=== PATIENT | male | born 1950 | race Caucasian/White ===

== ENCOUNTER 2017-08-05 15:40 | Inpatient (IN) | payer OTHER ==
[~2017-08-05] VITALS: Ht 175.3 cm; Wt 110.2 kg
[~2017-08-05 15:40] MED LIST: ASPI81TA24 PO; ATOR40TA PO; CLOP75TA PO; GEMF600T5 PO; INSU100S22 SC; LISI5TAB18 PO; METF1000 PO; NITR0.4T2 SL; SITA50TA3 PO; TAMS0.4C96 PO
[2017-08-05 16:07] VITALS: BP 99/66
[2017-08-05 16:29] LABS: APPEARANCE,URINE CLEAR (CLEAR); BILIRUBIN,URINE NEGATIVE (NEGATIVE); BLOOD, URINE NEGATIVE (NEGATIVE); COLOR,URINE YELLOW (YELLOW); LEUKOCYTE ESTERASE ,URINE NEGATIVE (NEGATIVE); NITRITE, URINE NEGATIVE (NEGATIVE); PH,URINE 5.5 (5.0-9.0); UGLUCOSE 3+ (NEGATIVE)
[2017-08-05 16:44] LABS: BASOPHILS # (AUTO) 0.1 K/uL (0.00-0.22); EOSINOPHILS # (AUTO) 0.3 K/uL (0-0.4); EOSINOPHILS % (AUTO) 3.1 % (0.0-4.0); HEMATOCRIT 50.5 % (36-52); HEMOGLOBIN 16.8 g/dL (12.0-18.0); LYMPHOCYTES # (AUTO) 1.8 K/uL (2.0-11.5); LYMPHOCYTES % (AUTO) 20.1 % (20.5-51.1); MEAN CORPUSCULAR HEMOGLOBIN 28 pg (27-31); MEAN CORPUSCULAR HGB CONC 33 g/dL (33-37); MEAN CORPUSCULAR VOLUME 84 fL (80-94); MONOCYTES # (AUTO) 0.4 K/uL (0.8-1.0); MONOCYTES % (AUTO) 4.3 % (1.7-9.3); NEUTROPHILS # (AUTO) 6.3 K/uL (1.8-7.7); NEUTROPHILS % (AUTO) 71.5 % (42.2-75.2); PLATELET COUNT (AUTO) 187 K/uL (140-450); RED BLOOD CELL COUNT(AUTO) 5.98 MIL/uL (4.20-6.10); RED CELL DISTRIBUTION WIDTH 12.9 % (11.6-13.7); WHITE BLOOD COUNT (AUTO) 8.9 K/uL (4.8-10.8)
--- NOTE | 2017-08-05 16:45 | NUR ---
Patient to bed 04.
--- NOTE | 2017-08-05 16:50 | NUR ---
PATIENT PRESENTS TO ED WITH ELEVATED BLOOD GLUCOSE. PT STATES HE WENT TO URGENT CARE REGARDING POLYURIA WHERE THEY FOUND HIS BS TO BE 588. BS NOW >600, AWAITING LAB BLOOD DRAW RESULTS. DENIES N/V/D; SKIN IS PINK/WARM/DRY; AAOX4 WITH EVEN AND STEADY GAIT; LUNGS CLEAR BL; HR EVEN AND REGULAR; PT DENIES ANY FEVER, CP, SOB, OR COUGH AT THIS TIME; PATIENT STATES PAIN OF 0/10 AT THIS TIME; VSS; PATIENT POSITIONED FOR COMFORT; HOB ELEVATED; BEDRAILS UP X2; BED DOWN. ER MD MADE AWARE OF PT STATUS.
[2017-08-05 16:52] LABS: RBC,URINE 0-5 (RARE) /HPF (0-5); WBC,URINE NONE SEEN /HPF (0-5)
[2017-08-05 17:00] LABS: PROTHROMBIN TIME 11.2 secs (10.8-13.4)
[2017-08-05 17:11] LABS: ALBUMIN 3.7 g/dL (3.4-5.0); ANION GAP 16.8 (8-16); CARBON DIOXIDE 20.7 mmol/L (21-32); CREATININE 1.9 mg/dL (0.7-1.3); POTASSIUM 4.5 mmol/L (3.5-5.1); TOTAL BILIRUBIN 0.4 mg/dL (0.0-1.0)
[2017-08-05] MEDS ORDERED: NACL 0.9% 1,000 ML IV ONE ×2 (17:15→21:35)
--- NOTE | 2017-08-05 17:15 | NUR ---
Dr. Walsh evaluating patient at bedside.
[2017-08-05] MEDS ORDERED: INSULIN HUMAN REGULAR 100 UNITS/ML 10 ML VIAL SUBQ ONE (17:20)
[2017-08-05] MEDS ORDERED: NACL 0.9% 1,000 ML IV SCH (18:12)
[2017-08-05] MEDS ORDERED: ACETAMINOPHEN 325 MG TAB PO PRN (18:15)
[2017-08-05] MEDS ORDERED: MORPHINE SULFATE 2 MG/ML SYR IVP PRN (18:15)
[2017-08-05] MEDS ORDERED: NITROGLYCERIN 0.4 MG TAB SL PRN (18:15)
[2017-08-05] MEDS ORDERED: LORazepam 2 MG/ML VIAL IVP PRN (18:15)
[2017-08-05] MEDS ORDERED: ONDANSETRON 4 MG/2 ML VIAL IVP PRN (18:15)
[2017-08-05] MEDS ORDERED: DEXTROSE 50% 50 ML SYR IVP PRN (18:15)
[2017-08-05 18:41] LABS: CREATINE KINASE MB 1.5 ng/mL (0-3.6)
--- NOTE | 2017-08-05 18:55 | NUR ---
Pt report given to DAMIAN ADAMSON. Transfer of care at this time. PATIENT TRANSFERRED TO TELEMETRY FLOOR 106B. PATIENT AMBULATORY. NO S/S OF ACUTE DISTRESS. IV SITE PATENT AND INTACT. ALERT AND ORIENTED.
--- NOTE | 2017-08-05 18:55 | NUR ---
PT ARRIVED ON UNIT VIA GURNEY. PT WAS ABLE TO AMBULATE FROM GURNEY TO BED. PT IS AAOX4, ON ROOM AIR, 20 GAUGE IV ON LEFT HAND, SKIN INTACT, DRYNESS TO ELBOWS. VITAL SIGNS STABLE. PT WAS GIVEN 15 UNITS OF NOVALIN INSULIN IN ER, CHECKED BLOOD SUGAR ON ARRIVAL TO UNIT AND IT WAS 518. SPOKE WITH DR HALL AND HE ORDERED 10 UNITS OF HUMALOG INSULIN. DISCUSSED PLAN OF CARE WITH PATIENT, PATIENT VERBALIZED UNDERSTANDING. PT STABLE, NO SIGNS OF DISTRESS NOTED. BED IN LOW POSITION, CALL LIGHT WITHIN REACH. WILL CONTINUE TO MONITOR.
[2017-08-05] MEDS: INSULIN LISPRO SLIDING SCALE 100 UNITS/ML VIAL SUBQ PRN ×2 (19:18→21:58)
--- NOTE | 2017-08-05 19:30 | NUR ---
ENDORSED PT TO BUILDING MOVER RN. PT IN STABLE CONDITION.
--- NOTE | 2017-08-05 19:31 | NUR ---
Admitted from ER TO TELEMETRY UNIT , with chief complaint of FREQUENT URINATION , 67 y/o ,Male, Cooperative, AWAKE, A/OX4, AMBULATORY. RESPIRATION EVEN AND UNLABORED.IV OF NS AT 100 ML/HR INFUSING LEFT HAND G20. LUNGS CLEAR ON BILATERAL AUSCULTATION. ABDOMEN SOFT, NON-TENDER WITH POSITIVE BOWEL SOUNDS ON ALL QUADRANTS. HEAD TO TOE ASSESSMENT DONE WITH CN FAIRY, SKIN INTACT. PLAN OF CARE FOR THE SHIFT DISCUSSED. VERBALIZED UNDERSTANDING. DENIES PAIN 0/10.oriented to call light, bed, phone,television, bathroom, smoking policy,visiting hours, procedures, ID bracelet on. Belongings list checked.
[2017-08-05 20:00] VITALS: BP_SYST 118; BP_SYST 127; BP_DIAS 51; BP_DIAS 77
[2017-08-05] MEDS ORDERED: INSULIN DETEMIR 100 UNITS/ML 10 ML VIAL SUBQ SCH (21:00)
[2017-08-05] MEDS ORDERED: INSULIN GLARGINE HUM REC ANLOG U SCH (21:00)
[2017-08-05] MEDS: BLOOD GLUCOSE MONITORING 1 DEV DEV FS SCH (21:52)
[2017-08-05] MEDS ORDERED: ZOLPIDEM 10 MG TAB PO PRN (23:00)
--- NOTE | 2017-08-05 23:13 | NUR ---
Patient's Plan of Care was discussed and reviewed with OBSTETRICS SCRUB NURSE: JANICE CARO.
--- NOTE | 2017-08-05 23:55 | NUR ---
UNABLE TO SLEEP, MEDICATED WITH AMBIEN ORDERED.
[2017-08-06] VITALS: BP 110/57
--- NOTE | 2017-08-06 00:55 | NUR ---
SLEEPING COMFORTABLY, NO DISTRESS NOTED.
[2017-08-06 04:00] VITALS: BP 125/75
[2017-08-06] MEDS: BLOOD GLUCOSE MONITORING 1 DEV DEV FS SCH ×2 (06:57→11:17)
[2017-08-06] MEDS: INSULIN LISPRO SLIDING SCALE 100 UNITS/ML VIAL SUBQ PRN ×2 (06:59→11:30)
--- NOTE | 2017-08-06 07:00 | NUR ---
CONDITION REMAIN STABLE. WILL ENDORSE TO AM NURSE FOR CONTINUITY OF CARE.
--- NOTE | 2017-08-06 07:01 | NUR ---
RECEIVED REPORT FROM RD SCIENTIST NURSE AT BEDSIDE FOR CONTINUITY OF CARE. PT IS AWAKE AND ORIENTED. INTRODUCED SELF AND UPDATED BOARD. VS ARE WNL. PT IS ON RA. IV IS ON LEFT HAND 20G SL. SKIN INTACT. AMBULATED TO BATHROOM INDEPENDENTLY. PT HAS NO COMPLAINTS AT THIS TIME. WILL RETURN WITH SCHEDULED MEDICATIONS.
[2017-08-06] MEDS ORDERED: GEMFIBROZIL 600 MG TAB PO SCH (07:30)
[2017-08-06 08:00] VITALS: BP 111/58
--- NOTE | 2017-08-06 08:45 | NUR ---
PATIENT HAS BEEN SCREENED AND CATEGORIZED HIGH NUTRITION RISK. PATIENT WILL BE SEEN WITHIN 1-2 DAYS OF ADMISSION. 08/06/17-08/07/[address]
[2017-08-06] MEDS ORDERED: ENOXAPARIN 40 MG/0.4 ML SYR SUBQ SCH (09:00)
[2017-08-06] MEDS ORDERED: CLOPIDOGREL 75 MG TAB PO SCH (09:00)
[2017-08-06] MEDS ORDERED: ASPIRIN 81 MG TAB.CHEW PO SCH (09:00)
[2017-08-06] MEDS ORDERED: TAMSULOSIN 0.4 MG CAP PO SCH (09:00)
[2017-08-06] MEDS ORDERED: ATORVASTATIN 20 MG TAB PO SCH (09:00)
[2017-08-06] MEDS ORDERED: NON-FORMULARY ITEM (Aspirin 81 MG) PO SCH (09:00)
[2017-08-06 09:30] LABS: BASOPHILS # (AUTO) 0.1 K/uL (0.00-0.22); EOSINOPHILS # (AUTO) 0.3 K/uL (0-0.4); EOSINOPHILS % (AUTO) 4.4 % (0.0-4.0); HEMOGLOBIN 15.9 g/dL (12.0-18.0); LYMPHOCYTES # (AUTO) 1.6 K/uL (2.0-11.5); LYMPHOCYTES % (AUTO) 20.6 % (20.5-51.1); MEAN CORPUSCULAR HEMOGLOBIN 29 pg (27-31); MEAN CORPUSCULAR HGB CONC 34 g/dL (33-37); MEAN CORPUSCULAR VOLUME 85 fL (80-94); MONOCYTES # (AUTO) 0.5 K/uL (0.8-1.0); MONOCYTES % (AUTO) 6.9 % (1.7-9.3); NEUTROPHILS % (AUTO) 67.1 % (42.2-75.2); PLATELET COUNT (AUTO) 168 K/uL (140-450); RED BLOOD CELL COUNT(AUTO) 5.55 MIL/uL (4.20-6.10); RED CELL DISTRIBUTION WIDTH 12.9 % (11.6-13.7); WHITE BLOOD COUNT (AUTO) 7.5 K/uL (4.8-10.8)
--- NOTE | 2017-08-06 09:45 | NUR ---
PT RESTING IN BED. NO SIGNS OF DISTRESS. NO COMPLAINTS AT THIS TIME. WILL CONTINUE TO MONITOR PT.
[2017-08-06 09:48] LABS: ALBUMIN 3.2 g/dL (3.4-5.0); CARBON DIOXIDE 23.5 mmol/L (21-32); CREATININE 1.5 mg/dL (0.7-1.3); POTASSIUM 4.5 mmol/L (3.5-5.1); TOTAL BILIRUBIN 0.6 mg/dL (0.0-1.0)
[2017-08-06 09:56] LABS: CREATINE KINASE MB 1.5 ng/mL (0-3.6)
[2017-08-06] MEDS ORDERED: MAGNESIUM OXIDE 400 MG TAB PO SCH (11:30)
--- NOTE | 2017-08-06 11:58 | NUR ---
REMOVED IV CATHETER FROM LEFT HAND. IV CATHETER TIP INTACT. APPLIED PRESSURE TO SITE. NO BLEEDING NOTED. REMOVED ID BAND. PT GIVEN D/C INSTRUCTIONS AND SIGNED PACKET. VERBALIZED INSTRUCTIONS AND STATED WILL SEE PCP TODAY. PT CHANGING IN OWN CLOTHES AND WILL HAVE LUNCH BEFORE LEAVING.
--- NOTE | 2017-08-06 12:45 | NUR ---
PT LEFT UNIT. AMBULATED ACCOMPANIED BY RN. LEFT WITH PERSONAL BELONGINGS. PT IN STABLE CONDITION.
--- NOTE | 2017-08-06 14:35 | NUR ---
INITIAL REVIEW FAXED TO [facility] [phone] PHONE [phone]
--- NOTE | 2017-08-06 15:18 | NUR ---
Patient discharged home. Chart reviewed and no discharge need identified and noted.
[2017-08-06] MEDS ORDERED: NACL 0.9% 1,000 ML IV SCH (18:12)
[2017-08-06] MEDS ORDERED: INSULIN DETEMIR 100 UNITS/ML 10 ML VIAL SUBQ SCH (21:00)
== END 2017-08-06 12:45 | disposition home or self-care (01) | DRG 639 ==
LOC: MED 15:40 → MTU 18:15
PROVIDERS: ADMIT Hospitalist; ATTEND Hospitalist
DX: E13.10 Other specified diabetes mellitus with ketoacidosis without coma (principal); N18.3 Chronic kidney disease, stage 3 (moderate); I12.9 Hypertensive chronic kidney disease with stage 1 through stage 4 chronic kidney disease, or unspecified chronic kidney disease; E86.0 Dehydration; E78.5 Hyperlipidemia, unspecified; E66.9 Obesity, unspecified; F17.210 Nicotine dependence, cigarettes, uncomplicated; I25.10 Atherosclerotic heart disease of native coronary artery without angina pectoris; Z88.8 Allergy status to other drugs, medicaments and biological substances; Z68.35 Body mass index [BMI] 35.0-35.9, adult; Z95.5 Presence of coronary angioplasty implant and graft; Z91.14 Patient's other noncompliance with medication regimen; Z79.4 Long term (current) use of insulin; Z79.02 Long term (current) use of antithrombotics/antiplatelets; Z71.6 Tobacco abuse counseling; Z79.84 Long term (current) use of oral hypoglycemic drugs
CPT/HCPCS: 36415; 36600; 71020; 80053; 81001; 82550; 82553; 82803; 82948; 83036; 83735; 84484; 85025; 85610; 87081; 96372; 99285; J1650; J1815; J7030

== ENCOUNTER 2020-05-11 12:52 | Emergency (ER) | payer OTHER ==
[~2020-05-11] VITALS: Ht 175.3 cm; Wt 115.2 kg
[2020-05-11 12:58] VITALS: BP 130/78
--- NOTE | 2020-05-11 13:00 | NUR ---
C/O CHIN ABSCESS , LIGHT HEADACHE,FACE PAIN X YESTERDAY. MED HX: HTN, PROSTATE CANCER, HEART BLOCKAGE, DM
[2020-05-11 13:20] VITALS: BP 130/78
--- NOTE | 2020-05-11 13:21 | NUR ---
Patient discharged with v/s stable. Written and verbal after care instructions given and explained. Patient alert, oriented and verbalized understanding of instructions. Ambulatory with steady gait. All questions addressed prior to discharge. ID band removed. Patient advised to follow up with PMD. Rx of KEFLEX & MOTRIN given. Patient educated on indication of medication including possible reaction and side effects. Opportunity to ask questions provided and answered.
== END 2020-05-11 13:20 | disposition home or self-care (01) ==
LOC: MED 12:52
DX: L03.211 Cellulitis of face (principal); I11.0 Hypertensive heart disease with heart failure; E11.9 Type 2 diabetes mellitus without complications; F17.210 Nicotine dependence, cigarettes, uncomplicated; Z79.84 Long term (current) use of oral hypoglycemic drugs; Z79.82 Long term (current) use of aspirin; Z79.899 Other long term (current) drug therapy; Z85.46 Personal history of malignant neoplasm of prostate; Z88.8 Allergy status to other drugs, medicaments and biological substances
CPT/HCPCS: 99283